=== PATIENT | male | born 1980 | race Caucasian/White ===

== ENCOUNTER 2023-10-04 13:23 | Inpatient (IN) | payer SELFPAY ==
[2023-10-04 13:28] VITALS: BP 134/79; PULSE 72; RESP 20; TEMP 36.9; O2SAT 97
[2023-10-04 13:54] VITALS: BMI 27.2
[2023-10-04 14:00] VITALS: BP 134/79; PULSE 72; RESP 20; TEMP 36.9; O2SAT 98
[2023-10-04] MEDS: nicotine 2 mg Gum BUCCAL ×5 (14:09→22:27)
--- NOTE | 2023-10-04 14:49 | PC.NURSE ---
PT WAS A DIRECT ADMIT FROM [facility]. UPON ADMIT TO THE UNIT PT STATED THAT HE IS ORIGINALLY FROM [place] AND WOULD LIKE TO GO BACK THERE. PT STATES THAT HE HAS BEEN HOMELESS FOR 3 DAYS. PT STATED THAT HE HAS BEEN WANTING TO HARM HIMSELF FOR 3 DAYS WELL. PT HAS PARANOID BEHAVIOR AND IS LABILE.
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
[2023-10-04] MEDS: trazodone 100 mg Tablet PO (20:31)
[2023-10-04] MEDS: BuSPIRONE 10 mg Tablet 15 MG PO (20:31)
[2023-10-04] MEDS: apixaban 5 mg Tablet PO (20:31)
[2023-10-04] MEDS: risperiDONE 1 mg Tablet PO (20:31)
[2023-10-04] MEDS: meloxicam 7.5 mg tablet PO (20:31)
--- NOTE | 2023-10-04 21:06 | PC.NURSE ---
PT BECAME VERY AGITATED AFTER SPEAKING TO DR, BECAUSE THE WOULD NOT PRESCRIBE HIM BENADRYL AND ATIVAN. PT WAS INFORMED RN CALLED PHARMACY AND PT HAS NOT BEEN GIVEN A PRESCRIPTION FOR ATIVAN OR BENADRYL. PT YELLING AND CUSSING AT STAFF STATING IM NOT TAKING THAT FUCKING MEDICINE UNTIL ITS THE RIGHT KIND. DR. COSTELLO AND THIS RN REVIEWED MEDICATIONS WITH PHARMACIES AND DATES OF PRESCRIPTIONS. MEDICATIONS WERE PRESCRIBED PREVIOUSLY PRESCRIBED. PT WAS EDUCATED ON WHAT MEDICATIONS STAFF WOULD BE GIVEN. PT DID EVENTUALLY CALM ONCE HE REALIZED MY MEDICATIONS WERE RIGHT, PT SPEECH FAST, RAPID AND ANIMATED. PT WAS EDUCATED ABOUT THE ATIVAN AND BENADRYL IS ONLY PRN AND HE HAD NO PRESCRIPTIONS FOR THEM SO THEY WOULD NOT BE STARTED ROUTINELY. PT WOULD NOT COMPLETE ASSESSMENT. PT DID SAY I'M NOT SUICIDAL. PT IS VERY PARANOID BELIEVES HE HEARS THE THROUGH THE DOOR SAYING BAD THINGS ABOUT ME. PT WAS INFORMED THAT IS DICTATING ON SEVERAL PTS AND IS NOT TALKING ABOUT HIM. PT DID TAKE HIS MEDICATIONS PRESCRIBED AFTER ALOT OF ENCOURAGEMENT. ALL QUESTIONS ANSWERED AND SUPPORT VOICED.
[2023-10-05 06:00] VITALS: BP 132/81; PULSE 84; RESP 20; O2SAT 96
[2023-10-05] MEDS: nicotine 2 mg Gum BUCCAL ×6 (06:20→21:46)
--- NOTE | 2023-10-05 06:21 | PC.NURSE ---
PT SLEPT APPROXIMATELY 6 HOURS LAST NIGHT. PT WOKE UP DEMANDING THIS RN GIVE HIM NICOTINE GUM NOW, I'VE BEEN UP HERE WAITING A LONG TIME. PT HAD BEEN AT THE DESK FOR APPROXIMATELY 10 SECONDS. PT WAS INFORMED THAT WHEN THIS RN WAS FINISHED TAKING CARE OF THE PT IN FRONT OF HIM I WOULD GET HIS GUM. PT WAITED 5 SECONDS AND BEGAN TO STATE THE SAME DEMANDS. PT WAS EDUCATED AGAIN THAT WHEN THIS RN WAS FINISHED WITH THE PT I WAS HELPING I WOULD HELP HIM. PT BEGAN TO PACE AND SPEAK VERY LOUDLY WHILE WALKING DOWN THE KNOWLES. PT WAS THEN GIVEN HIS NICOTINE GUM.
--- NOTE | 2023-10-05 06:36 | PC.NURSE ---
PT UP TO NURSES STATION DEMANDING HE BE TESTED FOR HIV AND HEP C. PT WAS INFORMED THAT RN WOULD LET DR. COSTELLO KNOW AND SEE IF HE WANTED TO ORDER THE TESTS. PT BECAME AGITATED DUE TO THIS RN NOT IMMEDIATELY PLACING A NOTE IN THE COMPUTER AND THEN PT WANTED TO KNOW WHEN THIS RN WOULD SEE THE DRDeacon TODAY. PT WAS EDUCATED THAT THIS RN WOULD NOT SEE THE DR. BEFORE I LEAVE BUT THE CHARGE NURSE COMING ON WOULD AND SHE COULD ASK THE FOR THE TEST AND SEE IF HE WANTED TO ORDER THE TESTS. PT CONTINUES TO BE DEMANDING AND DELUSIONAL TALKING ABOUT HIV AND ONLY 2 PERCENT OF THE POPULATION ACTUALLY CONTRACT IT. SUPPORT WAS VOICED.
[2023-10-05] MEDS: risperiDONE 1 mg Tablet PO ×2 (08:19→18:54)
[2023-10-05] MEDS: apixaban 5 mg Tablet PO ×2 (08:19→20:30)
[2023-10-05] MEDS: meloxicam 7.5 mg tablet PO ×2 (08:20→18:54)
[2023-10-05] MEDS: aspirin 81 mg EC Tablet PO (08:20)
[2023-10-05] MEDS: BuSPIRONE 10 mg Tablet 15 MG PO ×2 (08:20→20:30)
[2023-10-05] MEDS: flu vacc pf 2023-24 (6 mos+) 60 MCG IM (08:20)
--- NOTE | 2023-10-05 08:53 | PC.NURSE ---
PT CURRENTLY DENIES SI/HI/AH/VH. PT IS PARANOID, IMPULSIVE, AND INTRUSIVE. PT WAS COOPERATIVE WITH ASSESSMENT. DURING MEDICATION ADMINISTRATION PT WAS DEMANDING AND IRRITABLE DUE TO THE SCANNING PROCESS BEING TOO LONG . PT CURRENT NEEDS ARE MET AT THIS TIME.
--- NOTE | 2023-10-05 11:50 | PC.OT ---
OT EVAL ATTEMPTED 10/05/2023; WILL ATTEMPT AGAIN AT LATER TIME.
[2023-10-05 14:00] VITALS: BP 134/78; PULSE 92; RESP 18; TEMP 37; O2SAT 98
--- NOTE | 2023-10-05 18:21 | P.NPUPN_ITS ---
Subjective NPU Subjective: Patient is a 42-year-old male with a history of psychosis currently on Risperdal admitted with suicidal ideation. He did not endorse suicidal ideation at this time. He had endorsed being homeless. He had been demanding with the staff and showed evidence of poor frustration tolerance. He had tolerated his medications without difficulty. He continued to complain of a myriad of different things. He had requested numerous test to be completed and requested antibiotics despite there being no clear evidence of him having an infection. Patient had reported noncompliance with his psychotropic medications for a few weeks prior to his admission. Mental Status Exam MSE Comments: He had a disheveled appearance and appeared older than his stated age. He is a thin white male with a arched posture noted. He remained guarded on interview. He was hostile on interview. His speech was variable in regards to volume, with brief periods of blurting out something different unrelated to the c onversation. His mood was described as allright. His affect was irritable and mood incongruent. There was no evidence of any abnormal involuntary motor movements tics or tremors appreciated. There was continued evidence of psychomotor agitation at times. He did appear to be responding to internal stimuli. He was alert and oriented to person and place. His recent and remote memory were poor. His attention span was poor. His insight is feeble. His judgment is poor. His impulse control was limited. He remained interpersonally exploitative. Vitals/I&O/Wt Last Vital Signs Temp 98.6 F 10/05/23 14:00 Pulse 92 10/05/23 14:00 Resp 18 10/05/23 14:00 BP 134/78 10/05/23 14:00 Pulse Ox 98 10/05/23 14:00 O2 Del Method Room Air 10/05/23 06:00 Weight last 48 hrs Weight 86.183 kg Weight 86.183 kg A&P Assessment and plan (1) Unspecified psychosis: (2) Antisocial personality disorder: Plan 42-year-old male actively psychotic and agitated admitted with suicidal ideation with recent reports of being off his medication for a few days. We will attempt to gather collateral information and restart his medications likely to target chronic psychosis. 1. Encourage individual, group and milieu therapy. 2. Recommend sober living treatment at the highest level of care to which the patient is willing to commit. 3. Continue q-15 minute checks for safety.? 4.?Continue Risperidone 1mg bid, mobic as prescribed, asa as prescribed and buspar for anxiety. 5.? Will attempt to gather collateral information. Involuntary Hold Information 96 Hour Hold: 96 Hour Involuntary Admission: No Attestations NPU Medical Necessity Statement*: Inpatient hospitalization is medically necessary and deemed to ?be ?the clinically appropriate intervention ?at this time.? We will monitor/initiate medications and make changes as indicated.? The patient?s likely length of stay 3-5 days. Coding Level of Care Code Acute Code for Chg Fwd Diagnoses Unspecified psychosis F29 Antisocial personality disorder F60.2
[2023-10-05] MEDS: trazodone 100 mg Tablet PO (20:30)
[2023-10-05] MEDS: acetaminophen 325 mg Tablet 650 MG PO (20:33)
[2023-10-05 20:52] VITALS: BP 130/81; PULSE 82; RESP 18; TEMP 36.8; O2SAT 98
--- NOTE | 2023-10-05 21:16 | PC.NURSE ---
UP TO NURSES STATION FREQUENTLY DEMANDING MULTIPLE THINGS AT ONCE. CONTINUES TO BE FIXATED ON GETTING AN HIV AND HEP C TESTING DONE. NOTIFIED DR. COSTELLO NEW ORDERS RECEIVED TO COLLECT HIV AND HEP C TEST FOR AM. PT ENDORSES HAVING A FEW SUICIDAL THOUGHTS TODAY WITH NO PLAN, THEIR JUST PASSING THOUGHTS. CONTRACTED FOR SAFETY AND AGREES TO COME AND TALK TO STAFF IF THOUGHTS PERSISTS. DENIES HI AND AVH AT THIS TIME. REPORTS ANXIETY 5/10 AND DEPRESSION 9/10. STATES HE REALLY WANTS TO GET HELP THIS TIME AND HE IS APPRECIATIVE OF THE STAFF HELPING HIM. PT WAS ENCOURAGED TO CONTINUE TO ENGAGE IN TREATMENT PLAN AND MEDICATIONS. TOOK MEDICATIONS WITHOUT ISSUE. ALL QUESTIONS ANSWERED AND SUPPORT WAS VOICED.
--- NOTE | 2023-10-06 02:05 | PC.NURSE ---
PT UP TO NURSES STATION WANTING ANXIETY MEDICATIONS BUT STATES I AM NOT TAKING VISTARIL OR ZYPREXA I NEED BENADRYL THAT ALL THAT WORKS FOR ME. NEW ORDERS RECEIVED FROM DR. PLAZA FOR BENADRYL 50 MG PO Q 4 HOUR PRN AGITATION/ANXIETY. ORDERS PLACED. EDUCATED PT ON NEW ORDERS, PT VERBALIZED UNDERSTANDING. ALL QUESTIONS ANSWERED AND SUPPORT VOICED.
[2023-10-06] MEDS: diphenhydrAMINE 50 mg Capsule PO ×3 (02:20→11:48)
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
[2023-10-06] MEDS: nicotine 2 mg Gum BUCCAL ×7 (05:59→20:34)
[2023-10-06 06:00] VITALS: BP 125/84; PULSE 92; RESP 18; TEMP 36.8; O2SAT 96
--- NOTE | 2023-10-06 06:00 | PC.NURSE ---
PT REPORTS BENADRYL 50 MG WAS EFFECTIVE IN DECREASING PTS AGITATION. PT WANTED TO MAKE SURE RN MADE A NOTE STATING THAT.
--- NOTE | 2023-10-06 06:03 | PC.NURSE ---
PLACED ORDERS FOR HIV AND HEP C TEST REQUESTED BY PT. ORDERS RECEIVED FROM DR. COSTELLO.
--- NOTE | 2023-10-06 06:40 | PC.NURSE ---
PT UP TO NURSES STATION DEMANDING MULTIPLE THINGS FROM RN. PT IS DEMANDING, INTRUSIVE AND IMPULSIVE THIS AM. PT REQUEST HE BE GIVEN BENADRYL, RN ADMINISTERED BENADRYL 50 MG PO FOR INCREASED ANXIETY AND AGITATION. PT IS PACING BACK AND FORTH AND SITTING ON BENCH STARRING AT STAFF. PT DEMEANOR CHANGES CONSTANTLY BETWEEN THANKING STAFF THEN LOUDLY DEMANDING AND GETTING UPSET IF DEMANDS ARE NOT MET INSTANTLY. PT WAS GIVEN COFFEE, PHONE NUMBERS, MEDIATIONS AND RN LOOKED UP HIS PHONE AND WROTE IT DOWN FOR PT. SUPPORT VOICED.
[2023-10-06] MEDS: meloxicam 7.5 mg tablet PO ×2 (08:34→17:05)
[2023-10-06] MEDS: BuSPIRONE 10 mg Tablet 15 MG PO ×2 (08:34→20:34)
[2023-10-06] MEDS: aspirin 81 mg EC Tablet PO (08:34)
[2023-10-06] MEDS: risperiDONE 1 mg Tablet PO ×2 (08:34→17:05)
[2023-10-06] MEDS: apixaban 5 mg Tablet PO ×2 (08:34→20:34)
--- NOTE | 2023-10-06 08:35 | PC.NURSE ---
Denies avh and hi. He does endorse si with a plan to cut his wrists, but says he would not attempt it while here. This RN requested he let staff know if he felt he would act on this at all. He endorses anxiety and depression, both at a 9/10. Patient cooperative, but very intrusive at nurses' station this morning.
--- NOTE | 2023-10-06 11:27 | PC.OT ---
MULTIPLE ATTEMPTS MADE 10/06/2023 FOR OT EVALUATION; WILL ATTEMPT AT LATER TIME.
--- NOTE | 2023-10-06 11:49 | PC.NURSE ---
PRN BENADRYL 50 MG GIVEN PO PER PT C/O AGITATION. PT YELLING CURSING AT NURSING STAFF CALLING US ANASTASIA BELTRAN YOU REDIRECTED BEHAVIOR WAS INAPPROPRIATE
[2023-10-06 14:00] VITALS: BP 131/80; PULSE 77; RESP 18; TEMP 37.1; O2SAT 95
[2023-10-06] MEDS: OLANZapine 5 mg ODT PO (15:41)
[2023-10-06] MEDS: hyDROXYzine 25 mg Capsule 50 MG PO (15:41)
--- NOTE | 2023-10-06 15:41 | PC.NURSE ---
PRN VISTARIL & ZYPREXA ZYDIS VISTARIL 50 MG GIVEN PO FOR C/O ANXIETY & ZYPREXA ZYDIS 5 MG GIVEN PO SUBLINGUAL FOR PT C/O AGITATION. PATIENT IN HALLWAY, MAKING THREATENING GESTURES, VERBALLY AGGRESSIVE WITH STAFF CURSING, APPEARS TO BE POSSIBLY RESPONDING TO INTERNAL STIMULI. TOOK PRN MEDICATIONS FROM MALE NURSE, SECURITY CALLED TO UNIT FOR STANDBY ASSIST IF NEEDED. TOOK PRN MEDS WITHOUT INCIDENT
--- NOTE | 2023-10-06 18:08 | P.NPUPN_ITS ---
Subjective NPU Subjective: Patient is a 42-year-old male with a history of psychosis currently on Risperdal admitted with suicidal ideation. The patient had been more redirectable on the milieu. He had requested that he receive additional risperidone instead of Zyprexa for his agitation. He had been demanding but stated that he was hopeful about transitioning eventually into an independent living facility. He reports being okay about being placed in a senior living in [place] if possible. He had reported that he had not been feeling suicidal today. He had still reported being distracted by his thoughts and appeared at times to be responding to internal stimuli on the unit while engaging in conversation with someone who did not appear present at the times. Mental Status Exam MSE Comments: He had a disheveled appearance and appeared older than his stated age. He is a thin white male with a arched posture noted. He was less guarded on interview. His speech was Normal in regards to rate and prosody with only brief periods of increased latency. His mood was described as okay. His affect was blunted. There was no evidence of any abnormal involuntary motor movements tics or tremors appreciated. There was less evidence of psychomotor agitation today. He had appeared less distracted by internal stimuli today. He was alert and oriented to person and place. His recent and remote memory were poor. His attention span was improving. His insight is improving. His judgment is poor. His impulse control was limited. . Vitals/I&O/Wt Last Vital Signs Temp 98.7 F 10/06/23 14:00 Pulse 77 10/06/23 14:00 Resp 18 10/06/23 14:00 BP 131/80 10/06/23 14:00 Pulse Ox 95 10/06/23 14:00 O2 Del Method Room Air 10/06/23 14:00 A&P Assessment and plan (1) Unspecified psychosis: (2) Antisocial personality disorder: Plan 42-year-old male actively psychotic and agitated admitted with suicidal ideation with recent reports of being off his medication for a few days. We will attempt to gather collateral information and restart his medications likely to target chronic psychosis. 1. Encourage individual, group and milieu therapy. 2. Recommend sober living treatment at the highest level of care to which the patient is willing to commit. 3. Continue q-15 minute checks for safety.? 4.?Continue Risperidone 1mg bid, mobic as prescribed, asa as prescribed and buspar for anxiety. Prn risperidone .5mg for agitation. 5.? Will attempt to gather collateral information. Involuntary Hold Information 96 Hour Hold: 96 Hour Involuntary Admission: No Attestations NPU Medical Necessity Statement*: Inpatient hospitalization is medically necessary and deemed to ?be ?the clinically appropriate intervention ?at this time.? We will monitor/initiate medications and make changes as indicated.? The patient?s likely length of stay 3-5 days. Coding Level of Care Code Acute Code for Chg Fwd Diagnoses Unspecified psychosis F29 Antisocial personality disorder F60.2
[2023-10-06] MEDS: water for injection-sterile 10 ML (18:37)
[2023-10-06] MEDS: ziprasidone 20 mg/mL SDV IM (18:37)
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
[2023-10-06] MEDS: trazodone 100 mg Tablet PO (20:34)
[2023-10-06 20:35] VITALS: BP 128/78; PULSE 95; RESP 18; TEMP 36.8; O2SAT 98
[2023-10-06 21:11] LABS: Hepatitis A Antibody IgM Non-Reactive (Nonreactive); Hepatitis B Surface Antigen Non-Reactive (Nonreactive); Hepatitis C Virus Antibody Non-Reactive (Nonreactive)
[2023-10-06 21:39] LABS: Hepatitis B Core IgM Non-Reactive (Nonreactive)
[2023-10-07] MEDS: nicotine 2 mg Gum BUCCAL ×8 (05:50→22:45)
[2023-10-07] MEDS: hyDROXYzine 25 mg Capsule 50 MG PO (05:51)
[2023-10-07 06:00] VITALS: BP 126/89; PULSE 88; RESP 20; O2SAT 98
--- NOTE | 2023-10-07 08:22 | PC.NURSE ---
During assessment, patient rates anxiety 5/10. Patient rates depression 8/10. When asked about the possible causes of his anxiety and depression, patient stated, I don't want to talk about it . Patient endorses suicidal thoughts, denies any plan. Patient states that he is not aware of any auditory and visual hallucinations. Patient is sweating.
[2023-10-07] MEDS: BuSPIRONE 10 mg Tablet 15 MG PO ×2 (08:44→20:07)
[2023-10-07] MEDS: risperiDONE 1 mg Tablet PO ×2 (08:44→17:02)
[2023-10-07] MEDS: meloxicam 7.5 mg tablet PO ×2 (08:44→17:02)
[2023-10-07] MEDS: aspirin 81 mg EC Tablet PO (08:44)
[2023-10-07] MEDS: diphenhydrAMINE 50 mg Capsule PO ×2 (08:45→17:02)
[2023-10-07] MEDS: apixaban 5 mg Tablet PO ×2 (08:45→20:07)
[2023-10-07] MEDS: guaiFENesin-dextromethorphan UDC 10 mL PO ×3 (10:50→20:07)
[2023-10-07] MEDS: risperiDONE 0.25 mg Tablet 0.5 MG PO (13:43)
[2023-10-07 14:00] VITALS: BP 116/80; PULSE 95; RESP 18; TEMP 36.9; O2SAT 97
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
[2023-10-07 16:49] LABS: HIV RNA (CPY/ML) NOT DETECTED (NOT DETECTED); HIV RNA LOG NOT DETECTED copies/mL (NOT DETECTED)
--- NOTE | 2023-10-07 17:22 | PC.NURSE ---
Patient has been spotted on multiple occassions with ear against the door to the med room and the door to the doctor's office. Patient states to this nurse that certain staff are talking about him. Patient appears to be fixated on the delusion that staff are working together to sabatoge him. Patient states that a nurse is a whore, slut, cunt and that she is having orgies and performing oral sex on others in the back rooms.
[2023-10-07] MEDS: trazodone 100 mg Tablet PO (20:07)
[2023-10-07 20:20] VITALS: BP 124/78; PULSE 92; RESP 18; TEMP 36.8; O2SAT 98
[2023-10-08] MEDS: guaiFENesin-dextromethorphan UDC 10 mL PO ×5 (04:07→20:33)
[2023-10-08] MEDS: nicotine 2 mg Gum BUCCAL ×7 (04:14→20:33)
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
[2023-10-08] MEDS: diphenhydrAMINE 50 mg/mL SDV 1mL IM (05:30)
[2023-10-08] MEDS: LORazepam 2 mg/mL INJ 1 mL IM (05:30)
--- NOTE | 2023-10-08 05:55 | PC.NURSE ---
B-52 meds: Due to pts increased agitation and verbal threats / actions at about 05:20 a code 10 was called and this INSPECTOR PROCESS shakeel up 2mg Ativan and 50mg Benadryl. At about 05:30 this INSPECTOR PROCESS administered 2mg Ativan into pts R deltoid and the RN administered 50mg Benadryl into pt L deltoid. Pt took shots willingly and tolerated well.
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
[2023-10-08] MEDS: risperiDONE 1 mg Tablet PO ×2 (08:42→17:15)
[2023-10-08] MEDS: BuSPIRONE 10 mg Tablet 15 MG PO ×2 (08:42→20:33)
[2023-10-08] MEDS: meloxicam 7.5 mg tablet PO ×2 (08:42→17:15)
[2023-10-08] MEDS: diphenhydrAMINE 50 mg Capsule PO ×2 (08:42→17:15)
[2023-10-08] MEDS: apixaban 5 mg Tablet PO ×2 (08:42→20:33)
[2023-10-08] MEDS: aspirin 81 mg EC Tablet PO (08:42)
[2023-10-08 09:20] LABS: HEP C RNA Viral Load Quant <1.18 NOT DETECTED Log IU/mL (NOT DETECTED); HEP C RNA Viral Load Quant <15 NOT DETECTED IU/mL (NOT DETECTED)
[2023-10-08 14:00] VITALS: RESP 18
--- NOTE | 2023-10-08 14:14 | PC.NURSE ---
pt refused vitals, respirations obtained at 18. will continue to monitor.
--- NOTE | 2023-10-08 14:19 | PC.NURSE ---
While this nurse and another nurse were counting controlled medications in the med room, patient knocked on the outer door and stated, no torture? This nurse stated, no torture. Patient then said, So I can take out these ear plugs that I have jammed in my head all day? Staff: yes . Patient then said, you aren't going to verbally torture me, be talking about me in the window? Staff stated that we would not talk about him or torture him. Patient then left the door and returned to his room.
--- NOTE | 2023-10-08 14:22 | PC.NURSE ---
While discharge clinical applications manager was attempting to help patient set up appointments, patient raised his voice, upset, pacing the mitchell. Patient stated that Wendie didn't care about him because she asked him to call and leave a message for something. Security called. Patient refused PRN medication. This nurse paced the mitchell with patient for 10-15 minutes, discussing why he was upset. Patient able to calm himself down.
--- NOTE | 2023-10-08 15:37 | W.PM.NPUPNS ---
Subjective NPU Subjective: Patient is a 42-year-old male with a history of psychosis currently on Risperdal admitted with suicidal ideation. The patient continued to have periods of intense anger and physically threatening behavior that required significant observation. Patient appeared explosive at times when things did not go as intended. He continued to have periods of time where he did appear to be responding to internal stimuli. He had walked it any increase in risperidone at this time although he had been agreeable with some prompting to take additional Risperdal for a brief periods of agitation. He had reported adequate sleep. He reported no suicidal thoughts. He had stated that he would like to go back to [place] for a senior living as he awaited his individual housing. Mental Status Exam MSE Comments: He is a thin white male with a arched posture who appeared his stated age who brooded on the unit while making demands and often required redirection. He had difficulty sitting still and had normal speech in regards to rate and normal volume that would then inexplicably become loud and boisterous. His mood was described as allright. His affect was labile and explosive. There was no evidence of any abnormal involuntary motor movements tics or tremors appreciated. There was less evidence of psychomotor agitation at this time. He had continued to appear to be responding to internal stimuli. He was alert and oriented to person and place. His recent and remote memory were poor. His attention span was improving. His insight is improving. His judgment is poor. His impulse control was limited. Vitals/I&O/Wt Last Vital Signs Temp 98.3 F 10/07/23 20:20 Pulse 92 10/07/23 20:20 Resp 18 10/08/23 14:00 BP 124/78 10/07/23 20:20 Pulse Ox 98 10/07/23 20:20 O2 Del Method Room Air 10/07/23 20:20 A&P Assessment and plan (1) Unspecified psychosis: (2) Antisocial personality disorder: Plan 42-year-old male actively psychotic and agitated admitted with suicidal ideation with recent reports of being off his medication for a few days. We will attempt to gather collateral information and restart his medications likely to target chronic psychosis. 1. Encourage individual, group and milieu therapy. 2. Recommend sober living treatment at the highest level of care to which the patient is willing to commit. 3. Continue q-15 minute checks for safety.? 4.?Continue Risperidone 1mg bid, mobic as prescribed, asa as prescribed and buspar for anxiety. Prn risperidone .5mg for agitation q4 hours. 5.? Will attempt to gather collateral information. Involuntary Hold Information 96 Hour Hold: 96 Hour Involuntary Admission: No Attestations NPU Medical Necessity Statement*: Inpatient hospitalization is medically necessary and deemed to ?be ?the clinically appropriate intervention ?at this time.? We will monitor/initiate medications and make changes as indicated.? The patient?s likely length of stay 3-5 days. Coding Level of Care Code Acute Code for Chg Fwd Diagnoses Unspecified psychosis F29 Antisocial personality disorder F60.2
[2023-10-08 20:03] VITALS: BP 115/74; PULSE 88; RESP 20; TEMP 36.8; O2SAT 98
[2023-10-08] MEDS: trazodone 100 mg Tablet PO (20:33)
--- NOTE | 2023-10-09 06:38 | PC.NURSE ---
pt ref vs resp 18
[2023-10-09 06:43] VITALS: BP 133/85; PULSE 77; RESP 18; TEMP 36.8; O2SAT 94
[2023-10-09] MEDS: guaiFENesin-dextromethorphan UDC 10 mL PO ×4 (07:05→22:28)
[2023-10-09] MEDS: nicotine 2 mg Gum BUCCAL ×7 (08:11→23:51)
--- NOTE | 2023-10-09 08:30 | PC.NURSE ---
pt currently denies si/hi/ah/vh. pt was willing and cooperative with assessment. pt speech is rambling. pt states that i still have thoughts of harming myself off and on but it is getting better with the medications. pt endorses depression rating it a 7/10 on a scale of 0-10 where 0 means not at all and 10 means the worst. pt current needs are met at this time.
[2023-10-09] MEDS: meloxicam 7.5 mg tablet PO ×2 (08:32→17:27)
[2023-10-09] MEDS: aspirin 81 mg EC Tablet PO (08:32)
[2023-10-09] MEDS: apixaban 5 mg Tablet PO ×2 (08:32→20:23)
[2023-10-09] MEDS: BuSPIRONE 10 mg Tablet 15 MG PO ×2 (08:32→20:23)
[2023-10-09] MEDS: diphenhydrAMINE 50 mg Capsule PO ×2 (08:33→17:27)
[2023-10-09] MEDS: risperiDONE 1 mg Tablet PO ×2 (08:33→17:27)
--- NOTE | 2023-10-09 13:09 | P.NPUPN_ITS ---
Subjective NPU Subjective: Patient is a 42-year-old male with a history of psychosis currently on Risperdal admitted with suicidal ideation. The patient continued to have explosive outbursts followed by periods of relative calmness. He had required significant redirection at times. He reported no side effects from his medication. He had appeared somewhat resistant to adjustment with his risperidone despite having significant problems with managing his mood. He appeared to be engaged in significant self talk but appeared less distracted for brief periods of time. The patient appeared engaged with staff requesting a myriad of things to help with controlling his mood. Mental Status Exam MSE Comments: He is a thin white male with a arched posture who appeared his stated age who continued to be pacing the hallway while brooding. His mood was described as better. His affect remained labile and explosive. There was no evidence of any abnormal involuntary motor movements tics or tremors appreciated. There was less evidence of psychomotor agitation at this time. He had continued to appear to be responding to internal stimuli. He was alert and oriented to person and place and time His recent and remote memory were poor. His attention span was improving. His insight is improving. His judgment is poor. His impulse control remained impaired. Vitals/I&O/Wt Last Vital Signs Temp 98.2 F 10/09/23 06:43 Pulse 77 10/09/23 06:43 Resp 18 10/09/23 06:43 BP 133/85 10/09/23 06:43 Pulse Ox 94 10/09/23 06:43 O2 Del Method Room Air 10/09/23 06:43 A&P Assessment and plan (1) Unspecified psychosis: (2) Antisocial personality disorder: Plan 42-year-old male actively psychotic and agitated admitted with suicidal ideation with recent reports of being off his medication for a few days. We will attempt to gather collateral information and restart his medications likely to target chronic psychosis. 1. Encourage individual, group and milieu therapy. 2. Recommend sober living treatment at the highest level of care to which the patient is willing to commit. 3. Continue q-15 minute checks for safety.? 4.?Continue Risperidone 1mg bid, mobic as prescribed, asa as prescribed and buspar for anxiety. Prn risperidone .5mg for agitation q4 hours. Involuntary Hold Information 96 Hour Hold: 96 Hour Involuntary Admission: No Attestations NPU Medical Necessity Statement*: Inpatient hospitalization is medically necessary and deemed to ?be ?the clinically appropriate intervention ?at this time.? We will monitor/initiate medications and make changes as indicated.? The patient?s likely length of stay 3-5 days. Looking for transfer to intermediate in [place] when stabilized. Coding Level of Care Code Acute Code for Chg Fwd Diagnoses Unspecified psychosis F29 Antisocial personality disorder F60.2
[2023-10-09 14:00] VITALS: BP 116/72; PULSE 86; RESP 16; TEMP 37.1; O2SAT 97
[2023-10-09] MEDS: trazodone 100 mg Tablet PO (20:23)
[2023-10-09 22:00] VITALS: BP 105/60; PULSE 82; RESP 18; TEMP 36.8; O2SAT 97
--- NOTE | 2023-10-09 23:35 | PC.NURSE ---
Pt repeatedly up to nurses station w/various medical c/o and questions regarding blood work. Information that was available was given. Pt is also pacing by the nurses station responding to internal stimuli and talking to himself. Behavioral monitoring continues.
[2023-10-10] MEDS: guaiFENesin-dextromethorphan UDC 10 mL PO ×3 (03:39→15:14)
[2023-10-10] MEDS: nicotine 2 mg Gum BUCCAL ×7 (03:43→21:23)
[2023-10-10 06:00] VITALS: RESP 16
--- NOTE | 2023-10-10 06:12 | PC.NURSE ---
Pt refused to obtain vital signs after asking multiple times.
[2023-10-10] MEDS: risperiDONE 1 mg Tablet PO ×2 (08:30→18:10)
[2023-10-10] MEDS: diphenhydrAMINE 50 mg Capsule PO ×2 (08:30→18:10)
[2023-10-10] MEDS: meloxicam 7.5 mg tablet PO ×2 (08:30→18:10)
[2023-10-10] MEDS: aspirin 81 mg EC Tablet PO (08:30)
[2023-10-10] MEDS: BuSPIRONE 10 mg Tablet 15 MG PO ×2 (08:43→20:46)
[2023-10-10] MEDS: apixaban 5 mg Tablet PO ×2 (08:43→20:46)
--- NOTE | 2023-10-10 09:23 | PC.NURSE ---
PT CURRENTLY DENIES SI/HI/AH/VH. PT ENDORSES THAT HE HAS HAD INTERMITTENT THOUGHTS OF HARMING HIMSELF BUT THAT THEY WERE NOT ACTIVE THIS MORNING. PT CONTINUES TO HAVE A FLIGHT OF IDEAS AND RAMBLING. PT CURRENTLY DISPLAYING PARANOID BEHAVIOR WHERE IF STAFF IS TALKING TO OTHER STAFF HE BEGINS TO BELIEVE THEY ARE TELLING SOMEONE TO ATTACK HIM. PT WAS WILLING AND COOPERATIVE WITH ASSESSMENT AND MEDICATIONS. PT CURRENT NEEDS ARE MET AT THIS TIME.
[2023-10-10 14:00] VITALS: BP 117/76; PULSE 87; RESP 16; TEMP 36.4; O2SAT 97
--- NOTE | 2023-10-10 15:19 | P.NPUPN_ITS ---
Subjective NPU Subjective: Patient is a 42-year-old male with a history of psychosis currently on Risperdal admitted with suicidal ideation. The patient had been able to manage his irritability with less explosive outbursts noted yesterday. He reports that he was trying to use a stress ball and stated that he was motivated to receive independent living. He had continued to be somewhat rigid in regards to wanting any changes in dosing of medications but was able to tolerate being given as needed Risperdal without any serious destruction of property or verbal assaults towards staff. He reported adequate sleep although staff notes the patient had significant problems with falling asleep last night and the patient was offered some medication to help with sleep again although he had refused this at this time. Mental Status Exam MSE Comments: He is a thin white male with a arched posture who appeared his stated age who continued to be pacing the hallway while brooding. His mood was described as better. His affect remained labile and expansive today. There was no evidence of any abnormal involuntary motor movements tics or tremors appreciated. There was less evidence of psychomotor agitation at this time. He continued to appear to be responding to some internal stimuli although he appeared less distracted by it. He was alert and oriented to person and place and time His recent and remote memory were improving. His attention span was improving. His insight is improving. His judgment is poor. His impulse control remained impaired. Vitals/I&O/Wt Last Vital Signs Temp 97.6 F 10/10/23 14:00 Pulse 87 10/10/23 14:00 Resp 16 10/10/23 14:00 BP 117/76 10/10/23 14:00 Pulse Ox 97 10/10/23 14:00 O2 Del Method Room Air 10/10/23 14:00 Weight last 48 hrs Weight 94.12 kg A&P Assessment and plan (1) Unspecified psychosis: (2) Antisocial personality disorder: Plan 42-year-old male actively psychotic and agitated admitted with suicidal ideation with recent reports of being off his medication for a few days. We will attempt to gather collateral information and restart his medications likely to target chronic psychosis. 1. Encourage individual, group and milieu therapy. 2. Recommend sober living treatment at the highest level of care to which the patient is willing to commit. 3. Continue q-15 minute checks for safety.? 4.?Continue Risperidone 1mg bid, mobic as prescribed, asa as prescribed and buspar for anxiety. Prn risperidone .5mg for agitation q4 hours. Involuntary Hold Information 96 Hour Hold: 96 Hour Involuntary Admission: No Attestations NPU Medical Necessity Statement*: Inpatient hospitalization is medically necessary and deemed to ?be ?the clinically appropriate intervention ?at this time.? We will monitor/initiate medications and make changes as indicated.? The patient?s likely length of stay 3-5 days. Looking for transfer to intermediate in [place] when stabilized. Coding Level of Care Code Acute Code for Chg Fwd Diagnoses Unspecified psychosis F29 Antisocial personality disorder F60.2
[2023-10-10] MEDS: trazodone 100 mg Tablet PO (20:46)
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
[2023-10-10 22:00] VITALS: BP 126/75; PULSE 77; RESP 18; TEMP 36.8; O2SAT 96
--- NOTE | 2023-10-10 22:04 | PC.NURSE ---
Pt has now returned to room and is calm at this time. Behavioral monitoring continues.
[2023-10-11] MEDS: nicotine 2 mg Gum BUCCAL ×2 (05:17→07:26)
[2023-10-11] MEDS: guaiFENesin-dextromethorphan UDC 10 mL PO (05:17)
[2023-10-11 06:00] VITALS: BP 119/81; PULSE 89; RESP 18; O2SAT 96
[2023-10-11] MEDS: ziprasidone 20 mg/mL SDV IM (07:25)
[2023-10-11] MEDS: BuSPIRONE 10 mg Tablet 15 MG PO (07:25)
[2023-10-11] MEDS: aspirin 81 mg EC Tablet PO (07:26)
[2023-10-11] MEDS: risperiDONE 1 mg Tablet PO (07:26)
[2023-10-11] MEDS: diphenhydrAMINE 50 mg Capsule PO (07:26)
[2023-10-11] MEDS: meloxicam 7.5 mg tablet PO (07:26)
[2023-10-11] MEDS: apixaban 5 mg Tablet PO (07:26)
[2023-10-11] MEDS: water for injection-sterile 10 ML 1.2 ML (07:28)
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
[2023-10-11 09:31] VITALS: BP 119/81; PULSE 89; RESP 18; TEMP 37.1; O2SAT 96
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
--- NOTE | 2023-10-11 10:11 | PC.NURSE ---
DISCHARGE EDUCATION COMPLETED. PT CONTINUES TO BE DEMANDING WITH STAFF, HAVING STAFF BAG ITEMS TWO AT A TIME. PT VERBALIZED UNDERSTANDING OF MEDICATIONS, DISCHARGE TEACHING ETC. PT LEFT WITH ALL BELONGINGS AND MEDICATIONS. PT IS DRESSING OUT CURRENTLY AND AWAITING HIS CAR TENDER RIDE TO [place] WHERE PT WILL BE GOING TO A ALF. ALL QUESTIONS ANSWERED AND SUPPORT VOICED.
[2023-10-21 10:32] LABS: HIV 1 & 2 Antibody Non-Reactive (Non-Reactiv); HIV 1 & 2 Antigen Non-Reactive (Non-Reactiv)
== END 2023-10-11 10:19 | disposition home or self-care (01) | DRG 885 ==
PROVIDERS: Admitting Provider Psychiatry & Neurology Psychiatry; Visit Provider Psychiatry & Neurology Psychiatry
DX: F29 Unspecified psychosis not due to a substance or known physiological condition (principal); R45.851 Suicidal ideations; F41.9 Anxiety disorder, unspecified; R45.1 Restlessness and agitation; Z91.148 Patient's other noncompliance with medication regimen for other reason
CPT/HCPCS: 36415; 80074; 87522; 87536; 87806; 90471; 90686; 96372; 97165; J1200; J2060; J3486; Q0163